=== PATIENT | male | born 1940 | race Caucasian/White ===

== ENCOUNTER 2024-01-27 22:08 | Emergency (ER) | payer OTHER ==
[~2024-01-27] VITALS: Ht 172.7 cm; Wt 81.7 kg
[~2024-01-27 22:08] MED LIST: ALBU90OI INH; Amoxicillin500 MG PO; BUME1 PO; CARBIDOPA-LEVO1 EA15 PO; Colace100 MG PO; FAMO10 PO; KLOR-CON 1010 ME9 PO; MULVITA PO; XARELTO20 M1 PO
[2024-01-27 22:44] LABS: BASOPHILS ABSOLUTE AUTO 0.04 K/mm3 (0.00-0.23); BASOPHILS PERCENT AUTO 0 % (0-2); EOSINOPHILS ABSOLUTE AUTO 0.04 K/mm3 (0.00-0.68); EOSINOPHILS PERCENT AUTO 0 % (0-6); Hematocrit 39.1 % (37.0-53.0); Hemoglobin 13.5 g/dL (13.5-17.5); IMMATURE GRAN ABSOLUTE AUTO 0.03 K/mm3 (0.00-0.10); IMMATURE GRAN PERCENT AUTO 0 % (0-1); LYMPHOCYTES ABSOLUTE AUTO 0.55 K/mm3 (0.84-5.20); LYMPHOCYTES PERCENT AUTO 6 % (21-46); MONOCYTES ABSOLUTE AUTO 0.84 K/mm3 (0.16-1.47); MONOCYTES PERCENT AUTO 9 % (4-13); Mean Corpuscular HGB 31.7 pg (26.0-34.0); Mean Corpuscular HGB Conc 34.5 g/dL (31.5-36.5); Mean Corpuscular Volume 92 fL (80-100); NEUTROPHILS ABSOLUTE AUTO 8.16 K/mm3 (1.96-9.15); NEUTROPHILS PERCENT AUTO 85 % (41-73); Platelet Count 146 K/mm3 (150-400); RDW Coefficient Variation 14.4 % (11.7-14.2); RDW Standard Deviation 48.7 fL (35.1-46.3); Red Blood Cell Count 4.26 M/mm3 (4.30-5.90); White Blood Cell Count 9.66 K/mm3 (4.00-11.30)
[2024-01-27 23:05] LABS: Albumin, Blood 3.5 g/dL (3.4-5.0); Bilirubin, Total 1.9 mg/dL (0.1-1.0); Bun/Creatinine Ratio 23.7 (12.0-20.0); Calcium, Blood 9.6 mg/dL (8.5-10.1); Creatinine, Blood 1.39 mg/dL (0.60-1.20); Globulin, Blood 3.6 g/dL (2.2-4.0); Potassium, Blood 4.1 mmol/L (3.5-5.5); Total Protein, Blood 7.1 g/dL (6.4-8.2)
[2024-01-27] MEDS ORDERED: NS 1,000 ML IV SCH (23:05)
[2024-01-27] MEDS ORDERED: Acetaminophen 500 MG Tab PO ONE (23:05)
[2024-01-27 23:10] LABS: Influenza A, PCR NEGATIVE (NEGATIVE); Influenza B, PCR NEGATIVE (NEGATIVE); Resp Syncytial Virus, PCR NEGATIVE (NEGATIVE)
[2024-01-27 23:24] LABS: Source, Urine Clean Catch
[2024-01-27 23:26] LABS: Bilirubin, Urine Neg (Neg); Blood, Urine 4+ (Neg); Glucose Qualitative, Urine Neg (Neg); Ketones, Urine Neg (Neg); Leukocyte Esterase, Urine Neg (Neg); Nitrite, Urine Neg (Neg); Protein, Urine 1+ (Neg); Urobilinogen, Urine NORM (Normal)
[2024-01-27 23:36] LABS: Appearance, Urine Clear (Clear); Color, Urine Yellow (P-Yellow)
[2024-01-27 23:38] LABS: Bacteria Few /hpf; Squamous Epithelial Cells Few /hpf (Few); White Blood Cells, Urine 0-2 /hpf (0-5)
[2024-01-27] MEDS ORDERED: METOPROLOL TART5010 PO (23:57)
[2024-01-27] MEDS ORDERED: LISI20 PO (23:57)
[2024-01-27] MEDS ORDERED: OLANZAPINE1024 PO (23:57)
[2024-01-27] MEDS ORDERED: ATOR10 PO (23:58)
[2024-01-28 00:01] LABS: SARS-Cov-2 (COVID-19) PCR, MMC POSITIVE (NEGATIVE)
[2024-01-28 00:30] VITALS: BP 112/76
== END 2024-01-28 01:02 | disposition home or self-care (01) ==
LOC: ER 22:08
PROVIDERS: Student in an Organized Health Care Education/Training Program
DX: U07.1 COVID-19 (principal)
CPT/HCPCS: 0241U; 51798; 71045; 80053; 81001; 85025; 96360; 99284-25; A9270; J7030

== ENCOUNTER 2024-02-02 12:38 | Observation (INO) | payer OTHER ==
[~2024-02-02] VITALS: Ht 167.6 cm; Wt 61.2 kg
[~2024-02-02 12:38] MED LIST changes: +ATOR10 PO; -Amoxicillin500 MG PO; +LISI20 PO; +METOPROLOL TART5010 PO; +OLANZAPINE1024 PO
[2024-02-02 13:15] LABS: BASOPHILS ABSOLUTE AUTO 0.02 K/mm3 (0.00-0.23); BASOPHILS PERCENT AUTO 0 % (0-2); EOSINOPHILS ABSOLUTE AUTO 0.04 K/mm3 (0.00-0.68); EOSINOPHILS PERCENT AUTO 0 % (0-6); Hematocrit 36.7 % (37.0-53.0); Hemoglobin 12.2 g/dL (13.5-17.5); IMMATURE GRAN ABSOLUTE AUTO 0.05 K/mm3 (0.00-0.10); IMMATURE GRAN PERCENT AUTO 1 % (0-1); LYMPHOCYTES ABSOLUTE AUTO 1.05 K/mm3 (0.84-5.20); LYMPHOCYTES PERCENT AUTO 11 % (21-46); MONOCYTES PERCENT AUTO 8 % (4-13); Mean Corpuscular HGB 30.8 pg (26.0-34.0); Mean Corpuscular HGB Conc 33.2 g/dL (31.5-36.5); Mean Corpuscular Volume 93 fL (80-100); Mean Platelet Volume 10.2 fL (9.1-12.4); NEUTROPHILS ABSOLUTE AUTO 7.95 K/mm3 (1.96-9.15); NEUTROPHILS PERCENT AUTO 80 % (41-73); Platelet Count 141 K/mm3 (150-400); RDW Coefficient Variation 14.4 % (11.7-14.2); RDW Standard Deviation 48.9 fL (35.1-46.3); Red Blood Cell Count 3.96 M/mm3 (4.30-5.90); White Blood Cell Count 9.91 K/mm3 (4.00-11.30)
[2024-02-02 13:36] LABS: Albumin, Blood 3.1 g/dL (3.4-5.0); Albumin/Globulin Ratio 0.8 (0.8-1.8); Bilirubin, Total 1.3 mg/dL (0.1-1.0); Bun/Creatinine Ratio 29.1 (12.0-20.0); Calcium, Blood 8.6 mg/dL (8.5-10.1); Creatinine, Blood 1.34 mg/dL (0.60-1.20); Globulin, Blood 3.7 g/dL (2.2-4.0); Total Protein, Blood 6.8 g/dL (6.4-8.2)
[2024-02-02] MEDS ORDERED: Phenylephrine HCl 100 MCG/ML-NS 10MLSYR (1MG/10ML) IV ONE (15:43)
[2024-02-02] MEDS ORDERED: Pantoprazole Sodium 40 MG Injection IV ONE (16:40)
[2024-02-02 18:19] LABS: International Normalized Ratio 1.55; Prothrombin Time Results 16.1 Sec (9.7-11.5)
[2024-02-02 18:42] LABS: Source, Urine Clean Catch
[2024-02-02] MEDS ORDERED: Ondansetron HCl 2 MG / ML 2ML Vial IV PRN (18:45)
[2024-02-02] MEDS ORDERED: NS 1,000 ML IV SCH (18:45)
[2024-02-02] MEDS ORDERED: Albuterol 2.5 MG/3 ML VIAL INH PRN (18:50)
[2024-02-02 18:52] LABS: Appearance, Urine Hazy (Clear); Bilirubin, Urine Neg (Neg); Blood, Urine 2+ (Neg); Color, Urine Yellow (P-Yellow); Glucose Qualitative, Urine Neg (Neg); Ketones, Urine Neg (Neg); Leukocyte Esterase, Urine 3+ (Neg); Nitrite, Urine Pos (Neg); Protein, Urine 2+ (Neg); Urobilinogen, Urine NORM (Normal); pH, Urine 6.5 (5.0-8.0)
[2024-02-02 18:58] LABS: Bacteria Many /hpf; Squamous Epithelial Cells Rare /hpf (Few); White Blood Cells, Urine 25-50 /hpf (0-5)
[2024-02-02] MEDS ORDERED: POLY500 (18:58)
[2024-02-02] MEDS ORDERED: MIRTAZAPINE7.5 M1 (18:58)
[2024-02-02 19:55] LABS: Hematocrit 35.8 % (37.0-53.0); Hemoglobin 11.6 g/dL (13.5-17.5)
[2024-02-02] MEDS ORDERED: OLAN2.5 PO (20:25)
[2024-02-02] MEDS ORDERED: MIRTAZAPINE7.5 M1 PO (20:25)
[2024-02-02 20:41] VITALS: BP 117/91
[2024-02-02] MEDS ORDERED: Levodopa/Carbidopa 100 / 25 MG Tab PO SCH (21:00)
[2024-02-02] MEDS ORDERED: Famotidine 20 MG Tab PO SCH (21:00)
[2024-02-02] MEDS ORDERED: CefTRIAXone Sodium 1,000 MG in NS 100 ML IV SCH (21:30)
[2024-02-03 01:17] LABS: Hematocrit 35.5 % (37.0-53.0); Hemoglobin 11.8 g/dL (13.5-17.5); Mean Corpuscular HGB Conc 33.2 g/dL (31.5-36.5); Mean Corpuscular Volume 93 fL (80-100); Mean Platelet Volume 9.1 fL (9.1-12.4); Platelet Count 129 K/mm3 (150-400); RDW Coefficient Variation 14.5 % (11.7-14.2); RDW Standard Deviation 50.3 fL (35.1-46.3); Red Blood Cell Count 3.81 M/mm3 (4.30-5.90)
[2024-02-03 01:43] LABS: BAND PERCENT MAN 3 % (0-8); BASOPHILS PERCENT MAN 0 % (0-2); EOSINOPHILS PERCENT MAN 0 % (0-6); LYMPHOCYTES ABSOLUTE MAN 1.24 K/mm3 (0.84-5.20); LYMPHOCYTES PERCENT MAN 14 % (21-46); MONOCYTES ABSOLUTE MAN 0.71 K/mm3 (0.16-1.47); MONOCYTES PERCENT MAN 8 % (4-13); NEUTROPHILS ABSOLUTE MAN 6.94 K/mm3 (1.96-9.15); SEG NEUTROPHILS PERCENT MAN 75 % (41-73); TOTAL CELLS COUNTED 100
[2024-02-03 04:00] VITALS: BP 123/84
[2024-02-03 05:34] LABS: Hematocrit 36.5 % (37.0-53.0); Hemoglobin 11.9 g/dL (13.5-17.5)
[2024-02-03 05:47] LABS: International Normalized Ratio 1.29; Prothrombin Time Results 13.5 Sec (9.7-11.5)
[2024-02-03 05:57] LABS: Albumin, Blood 2.7 g/dL (3.4-5.0); Albumin/Globulin Ratio 0.7 (0.8-1.8); Bilirubin, Total 1.2 mg/dL (0.1-1.0); Bun/Creatinine Ratio 30.9 (12.0-20.0); Calcium, Blood 8.6 mg/dL (8.5-10.1); Creatinine, Blood 1.1 mg/dL (0.60-1.20); Globulin, Blood 3.8 g/dL (2.2-4.0); Potassium, Blood 3.5 mmol/L (3.5-5.5); Total Protein, Blood 6.5 g/dL (6.4-8.2)
[2024-02-03 07:30] VITALS: BP 125/61
[2024-02-03] MEDS ORDERED: Atorvastatin 10 MG Tab PO SCH (09:00)
[2024-02-03] MEDS ORDERED: Metoprolol Succinate 50 MG TABCR PO SCH (09:00)
[2024-02-03] MEDS ORDERED: Peg/Electrolytes 4,000 ML BTL PO ONE (14:10)
[2024-02-03 14:26] LABS: Hematocrit 34.2 % (37.0-53.0); Hemoglobin 11.3 g/dL (13.5-17.5)
--- NOTE | 2024-02-03 14:53 | NUR ---
CALLED DR WHALEN, NOTIFIED OF REPORTS FROM TELE ALERTING RN THAT HR IS AFIB, MOSTLY 55-70, BUT OCC LOW 39. ORDER TO DISCONTINUE MET XL. ALSO INFORMED THAT RN HEARD CRACKLES IN BASES. INFORMED HER THAT PT WILL BE STARTING BOWEL PREP FOR COLONOSCOPY TOMORROW.
[2024-02-03 15:55] VITALS: BP 125/68
[2024-02-03] MEDS ORDERED: Amoxicillin500 MG PO (19:05)
[2024-02-03 19:27] VITALS: BP 137/76
--- NOTE | 2024-02-03 19:57 | NUR ---
PT A/O X2-3, FORGETFUL AND IMPULSIVE AT TIMES. STARTED COLON PREP WITH GOLYTELY AT 1600, STARTED HAVING LG AMOUNT OF BONITA STOOL, NO CLOTS, FORMED AT FIRST AND NOW LOOSE, BROWN TO RUST. PT HAS CONSUMED ABOUT HALF OF JUG WITH FREQ REMINDERS TO CONT DRINKING. PLACED 2L OXYGEN AT 1530 WITH SAT 84% ON ROOM AIR. TELE WITH HR DIPPING LOW 39, MOSTLY RESTING 58-68, DR SIMON AWARE AND METOPROLOL XL DC'D. PT HAS LOUD MURMUR AND CRACKLES IN BASES. WILL CONT TO CLIVE. COVID POS BUT ASYMPTOMATIC, NO COUGH OR SOB NOTED. REPORTED TO NOC RN
[2024-02-03] MEDS ORDERED: OLANZapine 5 MG Tab PO SCH (21:00)
[2024-02-04 03:51] VITALS: BP 130/82
[2024-02-04 07:02] LABS: BASOPHILS ABSOLUTE AUTO 0.04 K/mm3 (0.00-0.23); BASOPHILS PERCENT AUTO 1 % (0-2); EOSINOPHILS ABSOLUTE AUTO 0.14 K/mm3 (0.00-0.68); EOSINOPHILS PERCENT AUTO 2 % (0-6); Hematocrit 35.9 % (37.0-53.0); Hemoglobin 11.7 g/dL (13.5-17.5); IMMATURE GRAN ABSOLUTE AUTO 0.06 K/mm3 (0.00-0.10); IMMATURE GRAN PERCENT AUTO 1 % (0-1); LYMPHOCYTES ABSOLUTE AUTO 1.47 K/mm3 (0.84-5.20); LYMPHOCYTES PERCENT AUTO 18 % (21-46); MONOCYTES ABSOLUTE AUTO 0.68 K/mm3 (0.16-1.47); MONOCYTES PERCENT AUTO 8 % (4-13); Mean Corpuscular HGB 30.8 pg (26.0-34.0); Mean Corpuscular HGB Conc 32.6 g/dL (31.5-36.5); Mean Corpuscular Volume 95 fL (80-100); Mean Platelet Volume 9.8 fL (9.1-12.4); NEUTROPHILS ABSOLUTE AUTO 5.85 K/mm3 (1.96-9.15); NEUTROPHILS PERCENT AUTO 71 % (41-73); Platelet Count 138 K/mm3 (150-400); RDW Coefficient Variation 14.5 % (11.7-14.2); RDW Standard Deviation 50.2 fL (35.1-46.3); White Blood Cell Count 8.24 K/mm3 (4.00-11.30)
[2024-02-04 07:16] VITALS: BP 130/91
[2024-02-04 07:20] LABS: Bun/Creatinine Ratio 25.5 (12.0-20.0); Calcium, Blood 8.4 mg/dL (8.5-10.1); Creatinine, Blood 0.9 mg/dL (0.60-1.20); Potassium, Blood 3.6 mmol/L (3.5-5.5)
--- NOTE | 2024-02-04 07:51 | NUR ---
pt laying in bed very confused, oriented to self only, does attempt to follow some commands and cooperate with assessment, lungs are clear in upper kellogg, crackles in bases, resp even and unlabored at rest, hrirr, distant, tele in place running afib per monitor, see strip, murmur noted, no edema noted, ppp+2, cap refill <3 sec, vs stable, afebrile, piv to rfa site is cleara and patent, btx4, abd flat soft nontender, voids without diff, skin c/w/d, maew, very restless, pulling on lines etc... had a bowel prep through the night and was reported by night RN that his stool is clear with some small flecks, drank 3/4 of the golytley,call light in reach.
[2024-02-04] MEDS ORDERED: ASPI81CH PO (07:55)
[2024-02-04] MEDS ORDERED: NS 500 ML IV SCH (08:20)
--- NOTE | 2024-02-04 10:42 | NUR ---
PT INTO ENDO 2 VIA GURN FOR COLONOSCOPY PER DR. FLORES Pre-Op teaching done. Pt verbalizes understanding. History, Chart, Medications and Allergies reviewed before start of procedure.Patient confirms NPO status and agrees with scheduled surgery.
[2024-02-04 10:44] VITALS: BP 136/86
--- NOTE | 2024-02-04 10:52 | NUR ---
02/04/24 1052 Miguel Renee MONITOR INTACT WITH CONTINUOUS PULSE OXIMETRY, CONTINUOUS END TITAL CO2, AND INTERMITTENT BLOOD PRESSURE.AND EKG SEE ANESTHESIA RECORD PER DR. ELAM
[2024-02-04] MEDS ORDERED: NS 0 ML IV ONE (11:17)
[2024-02-04 11:40] VITALS: BP 116/72
[2024-02-04 12:08] VITALS: BP 131/73
[2024-02-04] MEDS ORDERED: VISBIOME 112.51 EACH PO (15:07)
[2024-02-04] MEDS ORDERED: CEPH500 PO (15:07)
[2024-02-04 16:06] VITALS: BP 117/79
--- NOTE | 2024-02-04 16:47 | NUR ---
1300: THIS RN ASSUMED CARE FROM [facility]. PT IS SITTING IN BED WITH LUNCH TRAY IN FRONT OF HIM. PT HAS REMOVED HIS NC, AND IS ORIENTED ONLY TO HIMSELF AND HIS STEP DAUGHTER MANNIE. FRAGILE ECCHYMOTIC SKIN. RECIEVING IV FLUIDS INTO PIV IN HIS LEFT FORE ARM. SBA WITH URINAL, IN BRIEFS. TELE ON. 1640: PT WAS DISCHARGED IN STABLE CONDITION TO STEP DAUGHTER MANNIE. PERIPHERAL IV REMOVED BY SELF PAY COLLECTOR. SBA WITH URINAL. ROOM AIR. TELE REMOVED, SET OFF BLOCKER NOTIFIED. PT EXITED HOSPTIAL WITH ALL PERSONAL BELONGINGS RETURNED VIA WHEELCHAIR POWERED BY SELF PAY COLLECTOR TO PRIVATE CAR DRIVEN BY MANNIE. RN EDUCATED PT AND MANNIE REGARDING DISCHARGE INSTRUCTIONS - TO [facility] AT [facility], TO KEEP APPT WITH PCP, AND WHICH MEDICATIONS TO STOP/WHICH TO START. MANNIE HAD NO FURTHER QUESTIONS AT THIS TIME.
== END 2024-02-04 16:40 | disposition home or self-care (01) ==
LOC: ER 12:38 → MEDS 12:39 → ERHOLD 12:39 → MEDS 20:30
PROVIDERS: Emergency Medicine; Family Medicine; Nurse Practitioner Acute Care; Physician Assistant; Surgery; ADMIT Internal Medicine
PROC: 0DJD8ZZ Inspection of Lower Intestinal Tract, Via Natural or Artificial Opening Endoscopic (ICD-10-PCS; principal; 2024-02-04 11:30)
DX: K57.30 Diverticulosis of large intestine without perforation or abscess without bleeding (principal); G20.A1 Parkinson's disease without dyskinesia, without mention of fluctuations; I25.10 Atherosclerotic heart disease of native coronary artery without angina pectoris; I48.91 Unspecified atrial fibrillation; J84.9 Interstitial pulmonary disease, unspecified; Z79.899 Other long term (current) drug therapy; D69.6 Thrombocytopenia, unspecified; U07.1 COVID-19
CPT/HCPCS: 36415; 74177; 80048; 80053; 81001; 85007; 85014; 85018; 85025; 85027; 85610; 85730; 86850; 86900; 86901; 87077; 87086; 87186; 94760; 96374-59; 96375; 96376; 99285-25; A9270; G0378; J0696; J2371; J2470; J7030; J7040; Q9967

== ENCOUNTER → 2024-02-10 | Outpatient (CLI) | payer OTHER ==
[~2024-02-10] MED LIST changes: +ASPI81CH PO; +Amoxicillin500 MG PO; +CEPH500 PO; +MIRTAZAPINE7.5 M1; +MIRTAZAPINE7.5 M1 PO; +OLAN2.5 PO; +POLY500; +VISBIOME 112.51 EACH PO
[2024-02-10 15:48] LABS: Adenovirus F 40/41 Not Detected (NOT DETECT); Astrovirus Not Detected (NOT DETECT); Campylobacter Sp Detected (NOT DETECT); Cryptosporidium Not Detected (NOT DETECT); Cyclospora Cayetanensis Not Detected (NOT DETECT); E. Coli O157 Not Detected (NOT DETECT); Entamoeba Histolytica Not Detected (NOT DETECT); Enteroaggregative E. coli-EAEC Not Detected (NOT DETECT); Enteropathogenic E. coli-EPEC Not Detected (NOT DETECT); Enterotoxigenic E. coli-ETEC Not Detected (NOT DETECT); Giardia Lamblia Not Detected (NOT DETECT); Norovirus GI/GII Not Detected (NOT DETECT); Plesiomonas Shigelloides Not Detected (NOT DETECT); Rotavirus A Not Detected (NOT DETECT); Salmonella Sp Not Detected (NOT DETECT); Sapovirus Not Detected (NOT DETECT); Shiga Toxin-prod E. coli-STEC Not Detected (NOT DETECT); Shigella/Enteroin E. coli-EIEC Not Detected (NOT DETECT); Vibrio Cholerae Not Detected (NOT DETECT); Vibrio Sp Not Detected (NOT DETECT); Yersinia Enterocolitica Not Detected (NOT DETECT)
== END ==
LOC: LAB SHORT 09:00 → LAB 09:00
PROVIDERS: Family Medicine
DX: R19.7 Diarrhea, unspecified (principal)
CPT/HCPCS: 87324; 87507